=== PATIENT | male | born 1990 | race Caucasian/White ===

== ENCOUNTER 2017-06-04 12:32 | Emergency (ER) | payer BC ==
[2017-06-04 12:45] VITALS: BP 118/64
--- NOTE | 2017-06-04 12:50 | UC ---
Skin Complaint HPI - HPI Summary HPI Summary: Pt presents with tick bite to RLQ abdomen - not sure when acquired, but went fishing 4 days ago and thinks thats possibly when. He noticed the tick last night and removed most of it from his skin. He denies fever, chills, SOB, chest pain, N/V/D/C, joint pain, fatigue, headaches, or vision changes. - History of Current Complaint Chief Complaint: UCSkin Time Seen by Provider: 06/04/17 12:49 Stated Complaint: TICK BITE Hx Obtained From: Patient Onset/Duration: Sudden Onset Skin Exposure Onset/Duration: Days Ago Onset Severity: Mild Current Severity: Mild Pain Intensity: 0 Pain Scale Used: 0-10 Numeric Location: Discrete - Allergy/Home Medications Allergies/Adverse Reactions: Allergies Allergy/AdvReac Type Severity Reaction Status Date / Time Penicillins Allergy See Comment Verified 11/23/15 19:01 Review of Systems Constitutional: Negative Skin: Other - Tick bite RLQ Eyes: Negative ENT: Negative Respiratory: Negative Cardiovascular: Negative Gastrointestinal: Negative Genitourinary: Negative Motor: Negative Neurovascular: Negative Neurological: Negative Psychological: Negative All Other Systems Reviewed And Are Negative: Yes PMH/Surg Hx/FS Hx/Imm Hx Previously Healthy: Yes - Surgical History Surgical History: None - Family History Known Family History: Positive: None Family History: NON CONTRIBUTORY - Social History Occupation: Employed Full-time Lives: With Family Alcohol Use: Rare Substance Use Type: Marijuana Substance Use Comment - Amount & Last Used: once a week Smoking Status (MU): Smoker, Current Status Unknown Type: Cigarettes Amount Used/How Often: random smoker Cessation Counseling: Counseled 3+Min - 10 Min Physical Exam Triage Information Reviewed: Yes Appearance: Well-Appearing, Well-Nourished Vital Signs: Initial Vital Signs Temp 99.2 F 06/04/17 12:41 Pulse 96 06/04/17 12:41 Resp 18 06/04/17 12:41 BP 118/64 06/04/17 12:41 Pulse Ox 100 06/04/17 12:41 Eyes: Positive: Conjunctiva Clear ENT: Positive: Hearing grossly normal, Pharynx normal, TMs normal, Uvula midline. Negative: Pharyngeal erythema, Nasal congestion, Nasal drainage, TM bulging, TM dull, TM red, Tonsillar swelling, Tonsillar exudate, Sinus tenderness Neck: Positive: Supple, Nontender, No Lymphadenopathy Respiratory: Positive: Chest non-tender, Lungs clear, Normal breath sounds, No respiratory distress, No accessory muscle use Cardiovascular: Positive: RRR, No Murmur, Pulses Normal Musculoskeletal: Positive: Strength Intact, ROM Intact, No Edema Neurological: Positive: Alert, Muscle Tone Normal Psychological: Positive: Age Appropriate Behavior Skin: Positive: Other - 3mm diameter area of erythema on RLQ abdomen with central black dot. Consistent with a tick bite. Appears that there is still a very small piece of the insect still under the skin. Course/Dx - Course Course Of Treatment: Doxycycline 200mg now. Monitor for signs/symptoms of lyme. Did not attempt to remove <1mm remaining insect part as the area has started scabbing/healing - attempted removal would likely be more harmful than beneficial. - Differential Diagnoses - Skin Complaint Differential Diagnoses: Cellulitis, Foreign Body, Other - Insect bite - Diagnoses Provider Diagnoses: Tick bite RLQ abdomen Discharge - Discharge Plan Condition: Stable Disposition: HOME Patient Education Materials: Lyme Disease (ED), Tick Bite (ED) Referrals: No Primary Care Phys,NOPCP [Primary Care Provider] - Additional Instructions: If you develop a fever, SOB, chest pain, new or worsening symptoms - please call your PCP or go to the ED. Monitor for signs and symptoms of lyme disease, such as a bulls eye rash, headache, neck pain, fatigue, joint pain or swelling.
[2017-06-04] MEDS ORDERED: DOXYcycline CAP(*) 100 MG PO ONE (13:04)
== END 2017-06-04 13:13 | disposition home or self-care (01) ==
LOC: UCEAST 12:32
DX: S30.861A Insect bite (nonvenomous) of abdominal wall, initial encounter (principal); W57.XXXA Bitten or stung by nonvenomous insect and other nonvenomous arthropods, initial encounter; Y93.9 Activity, unspecified; Y92.9 Unspecified place or not applicable; Y99.9 Unspecified external cause status
CPT/HCPCS: 99212; A9270-GY; G0463

== ENCOUNTER 2017-12-10 18:58 | Emergency (ER) | payer SELFPAY ==
[2017-12-10 19:41] VITALS: BP 123/84
[2017-12-10] MEDS ORDERED: Lidocaine 1% MPF* 2 ML VIAL INJ ONE (19:57)
[2017-12-10] MEDS ORDERED: Tetan/Diph/Pertus SYR(Tdap)* 0.5 ML SYR(BOOSTRIX) use SYR IM ONE (20:00)
[2017-12-10] MEDS ORDERED: Mupirocin 2% OINT* TUBE TOPICAL ONE (20:19)
--- NOTE | 2017-12-10 20:53 | UC ---
Shane Doll Julia, scribed for Brett Claudio MD on 12/10/17 at 1950 . Laceration HPI - HPI Summary HPI Summary: This patient is a 27 year old M presenting to [facility] [place] a chief complaint of a laceration to his nose after being hit by a ceiling fan around 18:15 this evening while walking on his bed. Patient denies significant pain, rating it 2/ 10 in severity. He denies epistaxis and LOC. He states his nose doesnt feel broken. Pt applied pressure to the wound with improvement. Bleeding worsens by moving eyebrows or changing facial expressions. He is unsure if his tetanus is utd. - History Of Current Complaint Chief Complaint: UCLaceration Stated Complaint: NOSE AND FACE INJURY Time Seen by Provider: 12/10/17 19:43 Hx Obtained From: Patient Laceration Location: Face - nose Mechanism Of Injury: Blunt Trauma Onset/Duration: Sudden Onset, Lasting Hours Severity: Mild Pain Intensity: 2 Pain Scale Used: 0-10 Numeric Aggravating Factors: Movement - facial - Allergies/Home Medications Allergies/Adverse Reactions: Allergies Allergy/AdvReac Type Severity Reaction Status Date / Time lactose Allergy Abdominal Verified 12/10/17 19:41 Pain Penicillins Allergy Rash Verified 12/10/17 19:41 PMH/Surg Hx/FS Hx/Imm Hx Previously Healthy: Yes - Surgical History Surgical History: None - Family History Known Family History: Negative: Cardiac Disease - Social History Alcohol Use: Rare Substance Use Type: Marijuana Substance Use Comment - Amount & Last Used: twic/ month Smoking Status (MU): Never Smoked Tobacco Type: Cigarettes Amount Used/How Often: random smoker Review of Systems Skin: Other - laceration to nose ENT: Negative - epistaxis Neurological: Negative - LOC All Other Systems Reviewed And Are Negative: Yes Physical Exam - Summary Physical Exam Summary: General: well-appearing, no pain distress Skin: warm, color reflects adequate perfusion, dry Head: 1cm laceration to the bridge of the nose, 0.5cm of the laceration is subcutaneous and open the rest is partial thickness, bony aspects of nose non tender, no facial tenderness Eyes: EOMI, LORIE ENT: normal, no blood in nares, teeth intact, TMs normal Neck: supple, nontender Respiratory: CTA, breath sounds present Cardiovascular: RRR Abdomen: soft, nontender Bowel: present Musculoskeletal: normal, strength/ROM intact Neurological: sensory/motor intact, A&O x3 Psychological: affect/mood appropriate Triage Information Reviewed: Yes Vital Signs: Initial Vital Signs Temp 98.6 F 12/10/17 19:35 Pulse 68 12/10/17 19:35 Resp 16 12/10/17 19:35 BP 123/84 12/10/17 19:35 Pulse Ox 100 12/10/17 19:35 Vital Signs Reviewed: Yes Laceration Repair - Laceration Repair 1 Description: Linear Modified For Repair: No - cleaned with Hibiclens, adn sterile saline Anesthesia Used: 1.0% Lido Cleansing Completed Via Routine Prep: Yes Irrigation With Pressure Irrigation Device: No Closure Material: Sutures - 1 Suture Of: Skin Suture Type: Prolene - 6.0 Laceration Course/Dx - Course/Dx Course Of Treatment: NO LOC. NO NEUROLOGIC SX. NASAL BONES NON TENDER. NO EPISTAXIS. DISCUSSED IMAGING BUT, NO EVIDENCE OF FXR. TDAP GIVEN IN CLINIC. F /U PMD; RE EVAL IF WORSEN OR ANY CONCERNS. - Differential Dx - Laceration/Wound Provider Diagnoses: FACIAL LACERATION. NASAL CONTUSION Discharge - Sign-Out/Discharge Documenting (check all that apply): Discharge/Admit/Transfer - Discharge Plan Condition: Stable Disposition: HOME Patient Education Materials: Facial Laceration (ED) Referrals: [facility] [place] [facility]IAN REFERRAL [Outside] Additional Instructions: FOLLOW UP WITH YOUR DOCTOR. SUTURE OUT IN 5 DAYS. YOU HAD A TDaP IMMUNIZATION TODAY IN CLINIC. KEEP ANTIBIOTIC OINTMENT ON THE WOUND TO MINIMIZE SCARRING. GET RECHECKED FOR ANY WORSENING OF YOUR CONDITION OR QUESTIONS OR CONCERNS. - Billing Disposition and Condition Condition: STABLE Disposition: HOME The documentation as recorded by the Shane lopez Julia accurately reflects the service I personally performed and the decisions made by me, Brett Claudio MD.
== END 2017-12-10 20:50 | disposition home or self-care (01) ==
LOC: UCEAST 18:58
DX: S01.21XA Laceration without foreign body of nose, initial encounter (principal); W22.09XA Striking against other stationary object, initial encounter; Y93.89 Activity, other specified; Y92.003 Bedroom of unspecified non-institutional (private) residence as the place of occurrence of the external cause; Z23 Encounter for immunization; Z88.0 Allergy status to penicillin
CPT/HCPCS: 12051; 90471; 90715; 99212; G0463